=== PATIENT | male | born 1960 | race Caucasian/White ===

== ENCOUNTER 2018-01-15 20:33 | Emergency (ER) | payer BC, OTHER ==
[2018-01-15] MEDS ORDERED: Ketorolac Tromethamine 30 MG/ML VIAL ONE (20:41)
[2018-01-15 21:14] LABS: Band 2 % (5-11); Hemoglobin 16.7 g/dL (14.0-18.0); Lymphocytes 5 % (21-51); MDiff Complete? YES; Mean Corpuscular HGB CONC 34.2 g/dL (32.0-36.0); Mean Corpuscular Hemoglobin 30.1 pg (27.0-31.0); Mean Platelet Volume 9.7 fL (7.4-10.4); Monocytes 10 % (0-10); Neutrophil 76 % (42-75); PLT Morphology Comment Appears Adequate; Platelet Count 180 thou/uL (130-400); RBC Distribution Width 12.2 % (11.5-14.5); Reactive Lymphocytes 7 % (0-10); Red Blood Cell (RBC) Count 5.55 mill/uL (4.70-6.10); White Blood Cell (WBC) Count 10.2 thou/uL (4.8-10.8)
[2018-01-15 21:23] LABS: ALT (SGPT) 33 U/L (8-55); AST (SGOT) 27 U/L (5-34); Albumin 4.5 g/dL (3.5-5.0); Alkaline Phosphatase 75 U/L (40-150); Anion Gap 18 mmol/L (10-20); BUN (Urea Nitrogen) 16 mg/dL (8.4-25.7); Bilirubin, Total 1.7 mg/dL (0.2-1.2); Calc. Creatinine Clearance 0 mL/min (70-130); Calcium 9.6 mg/dL (7.8-10.44); Carbon Dioxide 20 mmol/L (22-29); Chloride 103 mmol/L (98-107); Estimated GFR-MDRD 48; Globulin 3.2 g/dL (2.4-3.5); Glucose 141 mg/dL (70-105); Potassium 4.5 mmol/L (3.5-5.1); Protein, Total 7.7 g/dL (6.0-8.3); Sodium 136 mmol/L (136-145)
--- NOTE | 2018-01-15 21:26 | RAD ---
RIGHT KNEE FOUR VIEWS: 01/15/18 COMPARISON: None. HISTORY: Twisted knee, fall. FINDINGS: No significant knee joint effusion, displaced fracture, or evidence of dislocation. Mild posterior pa tellar osteophyte formation. IMPRESSION: No acute findings. POS: [facility]
[2018-01-15 21:38] LABS: Bilirubin Negative (Negative); Blood, Urine Negative (Negative); Clarity Slightly Cloudy (Clear); Glucose, Urine (Dipstick) Negative (Negative); Leukocyte Negative (Negative); Nitrite Negative (Negative); Protein, Urine (Dipstick) Negative (Neg-Trace); Specific Gravity, Urine 1.025 (1.005-1.030); Urobilinogen 0.2 mg/dL (0.2-1.0); pH, Urine 5.5 (5.0-9.0)
--- NOTE | 2018-01-15 22:40 | CT ---
CT OF THE ABDOMEN AND PELVIS 01/15/18 COMPARISON: None. HISTORY: Right flank pain. TECHNIQUE: Serial axial CT imaging obtained at 5 mm intervals from lung bases through pubic symphysis without co ntrast. Coronal reformatted imaging obtained. FINDINGS: The lack of contrast media limits assessment of the viscera, bowel, vascular structures and for lymph adenopathy. Mild bilateral lower lobe volume loss noted. No free intraperitoneal air. Limited assessment of the l iver and spleen is unremarkable. Incidental note is made of a posterior gastric fundus diverticulum and a duodenal diverticulum. Gallb ladder is nonvisualized. Pancreas and adrenal glands appear unremarkable. There is no evidence for nephrolithiasis or obstructive uropathy on the left. There is hydronephrosis and hydroureter on the right with nephromegaly and perinephric stranding. Thi s is secondary to an obstructing stone at the level of the right ureterovesicular junction measuring 4-5 mm, best seen on coronal image 96 and axial image 97. Limited assessment of the bowel demonstrates scattered diverticula within the sigmoid colon but no ev idence for diverticulitis. The appendix is unremarkable. There is scattered atherosclerotic calcification involving the abdominal aorta and its branches. Ther e is scattered degenerative change within the lower lumbar spine and in the region of the thoracolumb ar junction. IMPRESSION: Obstructive uropathy on the right secondary to a 4-5 mm obstructing stone at the level of the right u reterovesicular junction. Additional incidental findings as detailed above. POS: [facility]
== END 2018-01-15 22:18 | disposition home or self-care (01) ==
LOC: SCSER 20:33
DX: S83.91XA Sprain of unspecified site of right knee, initial encounter (principal); N13.2 Hydronephrosis with renal and ureteral calculous obstruction; I10 Essential (primary) hypertension; Z79.82 Long term (current) use of aspirin; Z79.899 Other long term (current) drug therapy; X50.1XXA Overexertion from prolonged static or awkward postures, initial encounter; Y93.23 Activity, snow (alpine) (downhill) skiing, snowboarding, sledding, tobogganing and snow tubing
CPT/HCPCS: 74176; 80053; 81003; 85025; 96361; 96374; 96375; J1885

== ENCOUNTER 2018-01-27 08:00 | Outpatient (CLI) | payer OTHER ==
--- NOTE | 2018-01-27 11:16 | MRI ---
MRI LEFT WRIST WITHOUT CONTRAST: INDICATIONS: Concern for TFCC injury and tendinitis. TECHNIQUE: Multiplanar, multisequence MR images were obtained of the left wrist without IV contrast. FINDINGS: Motion artifact slightly limits image detail. There is some intrinsic increased T2 signal involving the central aspect of the TFC, near its inserti on to the radius; however, no discrete TFC tear is evident. The visualized aspects of the meniscal h omologue and peripheral TFC attachments appear within normal limits. The scapholunate and lunotrique tral ligaments are intact. The visualized extrinsic ligaments appear intact. There is a small amoun t of fluid surrounding the ECU tendon, at the level of the ulnar styloid, best seen on image 27 of se haley 4. The remaining extensor tendons appear intact. The carpal tunnel and its contents are normal appearing. The median nerve is normal appearing. The ulnar neural vasculature appears within conor l limits. The FCR and FCU tendons appear normal. No acute osseous abnormality is evident. There is mild first CMC osteoarthrosis. The intrinsic hand musculature has a normal signal intensity. IMPRESSION: 1. Mild intrinsic degenerative signal involving the central aspect of the triangular fibrocartilage without evidence of a discrete tear. 2. Mild extensor carpi ulnaris tenosynovitis. 3. Mild first carpometacarpal osteoarthrosis. POS: [facility]
== END 2018-01-27 08:01 | disposition home or self-care (01) ==
LOC: SCSMRI 08:00
PROVIDERS: ATTEND Orthopaedic Surgery Hand Surgery
DX: S63.522A Sprain of radiocarpal joint of left wrist, initial encounter (principal)

== ENCOUNTER 2018-04-18 10:46 | Outpatient (CLI) | payer OTHER ==
[2018-04-18 12:12] LABS: #Eosinphils 0.1 thou/uL (0.0-0.7); #Lymphocytes 1.5 thou/uL (1.20-3.40); #Monocytes 0.3 thou/uL (0.11-0.59); %Basophils 0.4 % (0.0-1.0); %Eosinophils 2.9 % (0.0-10.0); %Lymphocytes 29.7 % (21.0-51.0); %Monocytes 6.2 % (0.0-10.0); %Neutrophils 60.8 % (42.0-75.0); Hemoglobin 14.9 g/dL (14.0-18.0); Mean Corpuscular HGB CONC 34.4 g/dL (32.0-36.0); Mean Corpuscular Hemoglobin 31.7 pg (27.0-31.0); Mean Corpuscular Volume 92.1 fl (80.0-94.0); Mean Platelet Volume 7.4 fL (7.4-10.4); Platelet Count 155 thou/uL (130-400); RBC Distribution Width 11.7 % (11.5-14.5); Red Blood Cell (RBC) Count 4.71 mill/uL (4.70-6.10); White Blood Cell (WBC) Count 4.9 thou/uL (4.8-10.8)
== END 2018-04-18 10:47 | disposition home or self-care (01) ==
LOC: LABBT 10:46
PROVIDERS: ATTEND Orthopaedic Surgery Hand Surgery
DX: Z01.812 Encounter for preprocedural laboratory examination (principal); M65.332 Trigger finger, left middle finger; M77.8 Other enthesopathies, not elsewhere classified; S63.599A Other specified sprain of unspecified wrist, initial encounter
CPT/HCPCS: 85025; 85652; 93005; 93010

== ENCOUNTER 2018-04-19 07:38 | Day surgery (SDC) | payer OTHER ==
[2018-04-18 11:15] VITALS: BMI 35.6
[2018-04-19] MEDS ORDERED: CEFAZOLIN/Water 2 GM/20 ML SYRINGE ONE (08:55)
[2018-04-19] MEDS ORDERED: Bacitracin Zinc Ointment 30 gm TUBE ONE (09:15)
[2018-04-19] MEDS ORDERED: EPINEPHrine 1 MG/ML AMP ONE (09:15)
[2018-04-19] MEDS ORDERED: Sodium Chloride 0.9% 10 ML ONE (09:15)
[2018-04-19] MEDS ORDERED: Bupivacaine PF 0.5% 30 ML VIAL ONE (09:15)
[2018-04-19] MEDS ORDERED: Midazolam HCl 2 mg/2 ml Vial ONE (09:18)
[2018-04-19] MEDS ORDERED: Fentanyl 100 MCG/2 ML VIAL ONE (09:18)
[2018-04-19] MEDS ORDERED: Betamet Acet/Betamet Na Ph 30 MG/5 ML VIAL ONE (10:18)
[2018-04-19] MEDS ORDERED: Ketorolac Tromethamine 30 MG/ML VIAL ONE ×2 (12:25→13:17)
[2018-04-19] MEDS ORDERED: PHENYLEPHRINE-NS 100 MCG/ML 10 ML SYRINGE ONE (13:17)
[2018-04-19] MEDS ORDERED: PROPOFOL 200 MG/20 ML VIAL ONE (13:17)
[2018-04-19] MEDS ORDERED: Dexamethasone 20 MG/5 ML VIAL ONE (13:17)
[2018-04-19] MEDS ORDERED: Lidocaine 1% PF 5 ML VIAL ONE (13:17)
[2018-04-19] MEDS ORDERED: Ondansetron HCl/PF 4 MG/2 ML Vial ONE (13:17)
--- NOTE | 2018-04-19 13:34 | RAD ---
THREE VIEWS LEFT WRIST: Date: 04-19-18 History: Follow up secondary to surgery. Evaluation of needle count. FINDINGS: There is subcutaneous soft tissue swelling and subtle lucencies overlying the dorsal aspect of the ca rpal metacarpal joints likely related to subcutaneous edema and emphysema from recent post-surgical c hanges. There is no fracture seen. No radiopaque or metallic foreign body is identified. IMPRESSION: 1. Subcutaneous soft tissue swelling about the wrist, greater dorsally, with suggestion of minimal iris cency which may be related to subcutaneous emphysema secondary recent surgical change. 2. No radiopaque or metallic foreign body is seen overlying the left wrist. 3. No acute osseous abnormality. POS: [facility]
--- NOTE | 2018-04-20 15:08 | OP ---
DATE OF PROCEDURE: 04/19/2018 PREOPERATIVE DIAGNOSES: 1. Synovitis, extensor carpi ulnaris tendon, left near the ulnar styloid. 2. Possible triangular fibrocartilage tear. 3. Tenosynovitis from middle finger, left A1 jeannie. POSTOPERATIVE DIAGNOSES: 1. Severe A1 jeannie tenosynovitis with tightening of the jeannie. 2. No evidence of wrist abnormality on diagnostic arthroscopy including no evidence of triangular fi brocartilage. 3. Extensor carpi ulnaris tenosynovitis just distal to the ulnar styloid over 2.5 cm area. PROCEDURES PERFORMED: 1. Left middle finger A1 jeannie release. 2. Left wrist diagnostic arthroscopy. 3. Left extensor carpi ulnaris tenosynovectomy. 4. Left flexor digitorum profundus tenosynovectomy middle finger A1 jeannie region. SPECIMEN SENT: Tenosynovial in the middle finger A1 jeannie area and the extensor carpi ulnaris tendo n. ESTIMATED BLOOD LOSS: Less than or equal to 15 mL. FINDINGS: No triangular fibrocartilage complex tear, whatsoever. No lunotriquetral abnormality, wha tsoever. INDICATIONS: Persistent pain with the above diagnoses. Failed conservative treatment. DESCRIPTION OF PROCEDURE: After successful general LMA technique, limb was prepped and draped. The patient had an arm kumar applied with inline traction. Arthrex sports type arm kumar for arthrosco py of the wrist. Then, outlined a standard portal at 3-4, 6U and 6R and established portals at 6U an d 3-4. We visualized the joint from both the 3-4 and 6U and found no true synovial abnormalities, no chondral abnormality, no ligamentous tear, laxity and no incongruity, but we did see that there was no triangular fibrocartilage tear. We removed the arthroscope. We then reinflated the tourniquet to 250 mmHg pressure and made a zigzag incision along extensor carpi ulnaris beginning at the incisura for the tendon at the ulnar head, opened the sheath, saw the thickness in over 2.5 cm. I did a radic al flexor tenosynovectomy to extensor carpi ulnaris tendon. We then reclosed retinaculum using a 4-0 Prolene. We released the tourniquet and closed this incision. Hemostasis obtained. Superficial ulnar nerve w as intact. This wound closed with running 4-0 Monocryl and 4-0 nylon outside for epidermis jorge sure only. We exsanguinated the limb, had a 12-minute tourniquet time now and approached the middle finger A1 pu lley with a longitudinal incision carrying through skin and subcutaneous tissue, visualizing neurovas cular bundle and tracked . We then visualized the A1 jeannie and performed the A1 jeannie release under direct visualization. Then, we lifted the tendons up and found the flexor tendon profundus goldsmith d marked tenosynovium, so we did a radical flexor tenosynovectomy here. The patient then had the helen rniquet deflated. Incision was closed after given Celestone here 2 mL and using 4-0 nylon interrupte d mattress pattern. Marcaine was given at all sites, a total of 20 mL, 10 divided equally and the pa tient left the operating room without evidence of anesthetic or operative complication.
== END 2018-04-19 14:14 | disposition home or self-care (01) ==
LOC: SDC 07:38
PROVIDERS: ATTEND Orthopaedic Surgery Hand Surgery
PROC: 0RJP4ZZ Inspection of Left Wrist Joint, Percutaneous Endoscopic Approach (ICD-10-PCS; principal; 2018-04-19)
PROC: 0LB60ZZ Excision of Left Lower Arm and Wrist Tendon, Open Approach (ICD-10-PCS; principal; 2018-04-19)
PROC: 0LB80ZZ Excision of Left Hand Tendon, Open Approach (ICD-10-PCS; principal; 2018-04-19)
PROC: 0LN80ZZ Release Left Hand Tendon, Open Approach (ICD-10-PCS; principal; 2018-04-19)
DX: M65.332 Trigger finger, left middle finger (principal); M65.842 Other synovitis and tenosynovitis, left hand; M77.8 Other enthesopathies, not elsewhere classified; I10 Essential (primary) hypertension; G47.33 Obstructive sleep apnea (adult) (pediatric); G47.00 Insomnia, unspecified; M19.90 Unspecified osteoarthritis, unspecified site; E78.5 Hyperlipidemia, unspecified; Z79.82 Long term (current) use of aspirin; Z79.899 Other long term (current) drug therapy; Z88.8 Allergy status to other drugs, medicaments and biological substances; Z98.890 Other specified postprocedural states
CPT/HCPCS: 88305; 96374; A4216; J0171; J0702; J1100; J1885; J2001; J2250; J2405; J2704; J3010; J3490; S0020

== ENCOUNTER 2018-08-20 11:47 | Emergency (ER) | payer OTHER ==
[2018-08-20] MEDS ORDERED: Ketorolac Tromethamine 60 MG/2 ML VIAL ONE (12:29)
--- NOTE | 2018-08-20 13:18 | RAD ---
RIGHT KNEE 4 VIEW SERIES: COMPARISON: 01/15/2018. INDICATION: Injury, fall, pain. FINDINGS: Mild osteoarthritis is present without fracture or dislocation. IMPRESSION: No acute osseous abnormality of the right knee. POS: [facility]
== END 2018-08-20 13:00 | disposition home or self-care (01) ==
LOC: ERS 11:47
DX: S80.01XA Contusion of right knee, initial encounter (principal); I10 Essential (primary) hypertension; M10.9 Gout, unspecified; Z79.82 Long term (current) use of aspirin; Z79.899 Other long term (current) drug therapy; W01.0XXA Fall on same level from slipping, tripping and stumbling without subsequent striking against object, initial encounter; Y92.69 Other specified industrial and construction area as the place of occurrence of the external cause
CPT/HCPCS: 96372; J1885

== ENCOUNTER 2018-10-05 08:02 | Outpatient (CLI) | payer OTHER ==
[2018-10-05] MEDS ORDERED: Iopamidol 370 76% 100 ML VIAL ONE (10:41)
[2018-10-05] MEDS ORDERED: Gadobenate Dimeglumine 529 MG/1 ML (20ML VIAL) ONE (10:45)
--- NOTE | 2018-10-05 11:47 | MRI ---
MRI LEFT WRIST WITH AND WITHOUT CONTRAST: HISTORY: History of left wrist pain and gout. Concern for synovitis. COMPARISON: Left wrist radiograph from [facility] dated 04/19/2018. TECHNIQUE: MultiHance 20 mL was utilized for the examination. A surface marker was placed within the region of interest. FINDINGS: Motion artifact degrades image quality. The extent of the soft tissue swelling has improved from the prior exam. No large joint effusion is evident. No periarticular erosive change is grossly evident. There is mild first CMC osteoarthrosis . No ra tenosynovitis is evident. The carpal tunnel and its contents appear within normal limits . Scapholunate and lunatotriquetral ligaments appear intact. The visualized extrinsic ligaments, wi thin the limitations of the exam, appear intact. No definite acute osseous abnormality is evident. No abnormal enhancement is noted. IMPRESSION: Improved soft tissue swelling of the left wrist when compared to a prior radiograph dated 04/19/2018. No abnormal enhancement demonstrated. No large amount of synovitis is noted. No periarticular ero sive change is evident. There is first carpometacarpal osteoarthrosis.. POS: [facility]
--- NOTE | 2018-10-05 14:11 | CT ---
CT ABDOMEN WITH CONTRAST CT PELVIS WITH CONTRAST: DATE: 10/05/18 HISTORY: 58-year-old male with palpable mass inferior to right rib cage, and pain in right groin. TECHNIQUE: IV injection of iodinated contrast media: Isovue. Oral contrast media: Readi-Cat. FINDINGS: Liver: No focal solid mass. Spleen: No splenomegaly. Pancreas: No mass or surrounding fat stranding. Adrenals: Right adrenal is normal. There is a low attenuation 3 x 3.5 cm left adrenal mass. Noncontra st density on CT of 01/15/18 was 15 HU. On the current post contrast CT, the attenuation is approxima tely 20 HU. Kidneys: No hydronephrosis or enhancement abnormalities. Ureters: No dilation. Bladder: No pathology identified. Abdominal aorta: No aneurysm. Small bowel: No dilation. Colon: No adjacent fat stranding. Appendix: No dilation or adjacent fat stranding. Free air: None. Free fluid: None. There is no evidence of bowel-containing inguinal hernia, inguinal lymphadenopathy or any other mass. There is no mass identified inferior to the right rib cage. IMPRESSION: 1. Left adrenal indeterminate mass. Recommend further evaluation with dedicated MRI of the adrenal g lands with and without contrast. 2. Otherwise negative CT. john [] POS: [facility]
== END 2018-10-05 08:03 | disposition home or self-care (01) ==
LOC: MRI 08:02
PROVIDERS: ATTEND Family Medicine
DX: S63.52 Sprain of radiocarpal joint (principal); M10.9 Gout, unspecified; M65.9 Synovitis and tenosynovitis, unspecified; M79.89 Other specified soft tissue disorders; M18.12 Unilateral primary osteoarthritis of first carpometacarpal joint, left hand; R10.84 Generalized abdominal pain
CPT/HCPCS: 74177; A9579

== ENCOUNTER 2019-06-20 07:31 | Outpatient (CLI) | payer OTHER ==
--- NOTE | 2019-06-20 11:02 | CT ---
CT AD AND PELVIS WITH ORAL AND IV CONTRAST: HISTORY: Retroperitoneal mass. COMPARISON: CT abdomen and pelvis of 10/05/2018. CORRELATION: MRI abdomen of 10/20/2018. There is elevation of the right hemidiaphragm with adjacent atelectatic change. There is mildly decreased attenuation of the liver compared to the spleen consistent with fatty infil tration. The spleen, adrenal glands, and kidneys are normal. The nonenhancing 3.5 cm cystic mass ar ising from mass in the left peritoneum separate from the left adrenal gland and pancreas is stable. The pancreas is normal. No free air, free fluid, or lymphadenopathy is seen in the abdomen or pelvis. The small bowel loops are not abnormally dilated. A normal-appearing appendix is present. There is mild colonic diverticu losis. Vascular calcifications are present without evidence of aneurysmal dilatation of the abdomina l aorta. There are degenerative changes in the spine. IMPRESSION: 1. Stable left retroperitoneal cystic mass. 2. Mild fatty infiltration of the liver. POS: [facility]
== END 2019-06-20 07:32 | disposition home or self-care (01) ==
LOC: SCSCT 07:31
PROVIDERS: ATTEND Surgery
DX: R19.00 Intra-abdominal and pelvic swelling, mass and lump, unspecified site (principal); K76.0 Fatty (change of) liver, not elsewhere classified
CPT/HCPCS: 74177

== ENCOUNTER 2019-12-15 12:23 | Outpatient (CLI) | payer OTHER ==
[~2019-12-15 12:23] MED LIST: Iopamidol-370 76% 500 ML 1 ML ONE
--- NOTE | 2019-12-15 14:33 | CT ---
CT ANGIOGRAM THORAX WITH AND WITHOUT IV CONTRAST AND 3-D RECONSTRUCTIONS CLINICAL INDICATION: Thoracic aortic aneurysm, chest pain. COMPARISON: 03/02/2016 FINDINGS: Pulmonary arteries: No filling defects are seen in the pulmonary arteries to suggest a pulmonary embo gabi. Aorta: The ascending thoracic aorta is ectatic measuring approximately 4.3 cm at the level of the phill n pulmonary artery. The descending thoracic aorta is normal in caliber measuring 3 cm in diameter. There is no evidence of an aortic dissection. There is a normal arrangement of the great vessels at t he aortic arch which are patent. Minimal vascular calcifications are seen at the aortic arch. Lungs: There is elevation right hemidiaphragm with volume loss at the right lung base. Minimal atelec tasis is present at the left lung base. No pleural effusion or consolidation is seen. Mediastinum: There is no evidence of lymphadenopathy. Thyroid gland: Previously seen subcentimeter hypodense nodules in each lobe of the thyroid gland are less perceptible on the current study. Calcification is seen in the right lobe of thyroid gland. Osseous structures: Mild degenerative changes are seen in the spine. Partial visualization of postope rative changes of the lower cervical spine with findings likely related to prior rotator cuff repair of the right shoulder. Chest wall: No abnormality visualized. Upper abdomen: Lobulated cystic appearing lesion left upper quadrant measuring 3.6 cm is again seen a nd overall similar in size to recent CT scan abdomen on 06/20/2019. This cystic lesion was also present on prior CTA chest on 03/02/2016. There is fluid attenuation of this lobulated cystic structure with abuts the stomach as well as the body of the left adrenal gland. This could potentially represent a gastric diverticulum. An approximately 2 mm nonobstructing calculus is seen in the superior pole right kidney. IMPRESSION: 1. Ectasia of the ascending thoracic aorta without aneurysmal dilatation. There is no evidence of a t horacic aortic dissection. 2. No acute findings are seen in the chest. 3. Elevation right hemidiaphragm with volume loss right lung base. 4. Nonobstructing superior pole right renal calculus. 5. Stable lobulated fluid attenuation cystic structure left upper quadrant which could potentially re present a gastric diverticulum. This is stable dating back to study in 2015.
== END 2019-12-15 12:24 | disposition home or self-care (01) ==
LOC: BICCT 12:23
PROVIDERS: ATTEND Internal Medicine Cardiovascular Disease
DX: R00.2 Palpitations (principal); I10 Essential (primary) hypertension; I71.2 Thoracic aortic aneurysm, without rupture; R07.9 Chest pain, unspecified; I77.810 Thoracic aortic ectasia; N20.0 Calculus of kidney; K31.4 Gastric diverticulum
CPT/HCPCS: 71275; 82565; Q9967

== ENCOUNTER 2020-01-22 08:05 | Outpatient (CLI) | payer OTHER ==
--- NOTE | 2020-01-22 09:57 | ULT ---
ULTRASOUND CAROTID DOPPLER STANDARD: HISTORY: Aphasia. FINDINGS: Real-time, worthy scale, color Doppler, and spectral analysis of the extracranial carotid and vertebral arteries was performed. No elevated peak systolic velocities within the internal carotid arteries. Antegrade flow of both ve rtebral arteries. Minimal atherosclerotic plaque both carotid bulbs. IMPRESSION: No hemodynamically significant stenosis. POS: [facility]
== END 2020-01-22 08:06 | disposition home or self-care (01) ==
LOC: SCSULT 08:05
PROVIDERS: ATTEND Family Medicine
DX: R47.01 Aphasia (principal)
CPT/HCPCS: 93880

== ENCOUNTER 2020-05-13 08:03 | Outpatient (CLI) | payer OTHER ==
--- NOTE | 2020-05-13 08:42 | ULT ---
ULTRASOUND RETROPERITONEUM COMPLETE: (RENAL) DATE: 05/13/2020 HISTORY: 59-year-old male with ICD-10: "N 20.0 recurrent kidney stones" FINDINGS: Please note that noncontrast CT is much more sensitive for renal calculi than ultrasound, especially for small calculi. The right kidney measures 11 x 6 x 7 cm. The left kidney measures 12 x 5.5 x 6.5 cm. Both kidneys have normal parenchymal echogenicity. There is no hydronephrosis. No moderate sized or large renal cystic or solid renal lesion is identified. Cursory images of the urinary bladder demonstrate no gross abnormality. IMPRESSION: Normal
--- NOTE | 2020-05-13 08:52 | RAD ---
Exam: Abdomen one view HISTORY: Recurrent renal calculi. COMPARISON: none FINDINGS: Nonspecific bowel gas pattern. No suspicious densities in the abdomen. Densities in the rig ht hemipelvis are favored to be phleboliths. Mild leftward curvature the upper lumbar spine. Visualized bony pelvis is intact IMPRESSION: Nonspecific bowel gas pattern.
== END 2020-05-13 08:04 | disposition home or self-care (01) ==
LOC: SCSULT 08:03
PROVIDERS: ATTEND Urology
DX: N20.0 Calculus of kidney (principal)
CPT/HCPCS: 74018; 76770

== ENCOUNTER 2020-08-15 15:30 | Outpatient (CLI) | payer OTHER ==
--- NOTE | 2020-08-15 16:51 | CT ---
CT ABDOMEN AND PELVIS WITHOUT IV CONTRAST: Date: 08/15/2020 INDICATION: Right back pain. History of renal stones. Comparison made to CT abdomen and pelvis of 01/15/2018. FINDINGS: Lung bases clear. Elevated right hemidiaphragm again noted, stable. The liver, spleen, and pancreas are unremarkable. A small diverticulum from the posterior fundus of the stomach is again noted and was described previo usly. This appears stable. Adrenal glands unremarkable. Kidneys show no evidence of hydronephrosis. Tiny nonobstructing calculi seen in the upper collecting structures of the right kidney. There are two or three tiny calculi measuring in the 1-2 mm range. No definite calculi seen in the left kidney. The ureters are normal caliber. Urinary bladder is unremar kable. Small bowel loops are normal. The appendix appears normal. Colon unremarkable with diverticulosis see n in the sigmoid. Aorta normal caliber. No adenopathy, mass, or free fluid seen. Vertebral bodies maintain height. Degenerative changes at L5-S1 noted. IMPRESSION: 1. No acute intra-abdominal process. 2. Two or three tiny nonobstructing calculi in the upper collecting structures of the right kidney. POS: [facility]
== END 2020-08-15 15:31 | disposition home or self-care (01) ==
LOC: SCSCT 15:30
PROVIDERS: ATTEND Family Medicine
DX: R10.9 Unspecified abdominal pain (principal); N20.0 Calculus of kidney
CPT/HCPCS: 74176

== ENCOUNTER 2021-03-19 19:42 | Inpatient (IN) | payer OTHER ==
[2021-03-19 21:30] VITALS: BMI 35.3
[2021-03-19] MEDS ORDERED: Ondansetron PF 4 MG/2 ML Vial IVP PRN (21:56)
[2021-03-19] MEDS ORDERED: Acetaminophen 325 MG TAB PO PRN (21:56)
[2021-03-19] MEDS ORDERED: Heparin 25,000 units/D5W 500 ML IVPB SCH (22:15)
[2021-03-19] MEDS ORDERED: Heparin 10,000 UNITS/ 10 ML VIAL SLOW IVP SCH (22:15)
[2021-03-19 22:22] LABS: Hemoglobin 14.1 g/dL (14.0-18.0); Platelet Count 131 thou/uL (130-400)
[2021-03-19] MEDS ORDERED: Carvedilol 25 MG TAB PO SCH (23:00)
[2021-03-19 23:09] LABS: PTT 242.3 sec (22.9-36.1)
[2021-03-20 01:08] LABS: SARS-CoV-2 PCR by NAA Not Detected (NotDetected)
[2021-03-20 01:32] LABS: #Eosinphils 0.2 thou/uL (0.0-0.7); #Lymphocytes 2.3 thou/uL (1.20-3.40); #Monocytes 0.5 thou/uL (0.11-0.59); #Neutrophils 3.8 thou/uL (1.40-6.50); %Basophils 0.5 % (0.0-1.0); %Eosinophils 2.4 % (0.0-10.0); %Monocytes 7.4 % (0.0-10.0); %Neutrophils 55.7 % (42.0-75.0); Hemoglobin 13.7 g/dL (14.0-18.0); Mean Corpuscular HGB CONC 34.1 g/dL (32.0-36.0); Mean Corpuscular Hemoglobin 33.2 pg (27.0-31.0); Mean Corpuscular Volume 97.1 fL (78.0-98.0); Platelet Count 137 thou/uL (130-400); RBC Distribution Width 13.1 % (11.5-14.5); Red Blood Cell (RBC) Count 4.15 mill/uL (4.70-6.10); White Blood Cell (WBC) Count 6.8 thou/uL (4.8-10.8)
[2021-03-20 01:49] LABS: PTT 181.7 sec (22.9-36.1)
[2021-03-20 01:56] LABS: Anion Gap 13 mmol/L (10-20); BUN (Urea Nitrogen) 14 mg/dL (8.4-25.7); Calc. Creatinine Clearance 123 mL/min (70-130); Carbon Dioxide 26 mmol/L (23-31); Chloride 105 mmol/L (98-107); Glucose 144 mg/dL (80-115); Sodium 140 mmol/L (136-145)
[2021-03-20] MEDS: Famotidine 20 MG TAB PO SCH ×2 (09:02→20:30)
[2021-03-20] MEDS: Carvedilol 25 MG TAB PO SCH ×2 (09:02→21:47)
[2021-03-20] MEDS ORDERED: Acetaminophen 500 MG TAB PO PRN (16:40)
[2021-03-20] MEDS ORDERED: Enoxaparin Sodium 120 MG/0.8 ML SYRINGE SC SCH ×2 (17:15→21:00)
[2021-03-20] MEDS: Colchicine 0.6 MG TAB PO SCH (20:28)
[2021-03-20] MEDS: traZODone HCl 50 MG TAB PO SCH (20:31)
[2021-03-21 04:53] LABS: #Eosinphils 0.2 thou/uL (0.0-0.7); #Lymphocytes 1.8 thou/uL (1.20-3.40); #Monocytes 0.6 thou/uL (0.11-0.59); #Neutrophils 3.9 thou/uL (1.40-6.50); %Basophils 0.3 % (0.0-1.0); %Eosinophils 2.9 % (0.0-10.0); %Lymphocytes 28.2 % (21.0-51.0); %Monocytes 8.7 % (0.0-10.0); %Neutrophils 59.9 % (42.0-75.0); Hemoglobin 14.6 g/dL (14.0-18.0); Mean Corpuscular HGB CONC 34.3 g/dL (32.0-36.0); Mean Corpuscular Hemoglobin 33.1 pg (27.0-31.0); Mean Corpuscular Volume 96.5 fL (78.0-98.0); Mean Platelet Volume 7.7 fL (7.4-10.4); Platelet Count 141 thou/uL (130-400); RBC Distribution Width 13.3 % (11.5-14.5); Red Blood Cell (RBC) Count 4.41 mill/uL (4.70-6.10); White Blood Cell (WBC) Count 6.5 thou/uL (4.8-10.8)
[2021-03-21 05:20] LABS: Anion Gap 13 mmol/L (10-20); BUN (Urea Nitrogen) 15 mg/dL (8.4-25.7); Calc. Creatinine Clearance 117 mL/min (70-130); Calcium 9.4 mg/dL (7.8-10.44); Carbon Dioxide 28 mmol/L (23-31); Chloride 102 mmol/L (98-107); Glucose 132 mg/dL (80-115); Potassium 4.1 mmol/L (3.5-5.1); Sodium 139 mmol/L (136-145)
[2021-03-21] MEDS: Enoxaparin Sodium 120 MG/0.8 ML SYRINGE SC SCH ×2 (08:56→22:30)
[2021-03-21] MEDS: Folic Acid 1 MG TAB PO SCH (08:57)
[2021-03-21] MEDS: Aspirin 81 mg Enteric Coated Tablet PO SCH (08:57)
[2021-03-21] MEDS: Allopurinol 300 MG TAB PO SCH (08:57)
[2021-03-21] MEDS: Colchicine 0.6 MG TAB PO SCH ×2 (08:57→22:30)
[2021-03-21] MEDS: Carvedilol 25 MG TAB PO SCH ×2 (08:58→22:30)
[2021-03-21] MEDS: Famotidine 20 MG TAB PO SCH ×2 (08:58→22:30)
[2021-03-21] MEDS: traZODone HCl 50 MG TAB PO SCH (22:07)
[2021-03-21] MEDS: HYDROcodone/Acetaminophen 5/325 mg Tablet PO PRN (22:33)
[2021-03-22 05:03] LABS: #Basophils 0.1 thou/uL (0.0-0.2); #Eosinphils 0.2 thou/uL (0.0-0.7); #Monocytes 0.5 thou/uL (0.11-0.59); #Neutrophils 3.6 thou/uL (1.40-6.50); %Basophils 1.3 % (0.0-1.0); %Eosinophils 2.5 % (0.0-10.0); %Lymphocytes 31.1 % (21.0-51.0); %Monocytes 8.1 % (0.0-10.0); Hemoglobin 14.9 g/dL (14.0-18.0); Mean Corpuscular HGB CONC 34.5 g/dL (32.0-36.0); Mean Corpuscular Hemoglobin 33.2 pg (27.0-31.0); Mean Corpuscular Volume 96.2 fL (78.0-98.0); Mean Platelet Volume 7.7 fL (7.4-10.4); Platelet Count 150 thou/uL (130-400); RBC Distribution Width 13.4 % (11.5-14.5); White Blood Cell (WBC) Count 6.3 thou/uL (4.8-10.8)
[2021-03-22 05:10] LABS: Anion Gap 16 mmol/L (10-20); BUN (Urea Nitrogen) 13 mg/dL (8.4-25.7); Calc. Creatinine Clearance 136 mL/min (70-130); Carbon Dioxide 24 mmol/L (23-31); Chloride 102 mmol/L (98-107); Glucose 116 mg/dL (80-115); Potassium 3.7 mmol/L (3.5-5.1); Sodium 138 mmol/L (136-145)
[2021-03-22] MEDS ORDERED: Apixaban 5 MG TAB PO SCH (09:00)
[2021-03-22] MEDS: Colchicine 0.6 MG TAB PO SCH (09:11)
[2021-03-22] MEDS: Carvedilol 25 MG TAB PO SCH (09:11)
[2021-03-22] MEDS: Folic Acid 1 MG TAB PO SCH (09:11)
[2021-03-22] MEDS: Allopurinol 300 MG TAB PO SCH (09:11)
[2021-03-22] MEDS: Aspirin 81 mg Enteric Coated Tablet PO SCH (09:11)
[2021-03-22] MEDS: Famotidine 20 MG TAB PO SCH (09:11)
[2021-03-22] MEDS: HYDROcodone/Acetaminophen 5/325 mg Tablet PO PRN (09:46)
[2021-03-22 11:56] VITALS: BP 128/80; TEMP 98
== END 2021-03-22 14:59 | disposition home or self-care (01) | DRG 175 ==
LOC: IMCU/EMU 19:42 → 2NO 03-20 23:19
PROVIDERS: ADMIT Internal Medicine; ATTEND Internal Medicine
DX: I26.99 Other pulmonary embolism without acute cor pulmonale (principal); J96.01 Acute respiratory failure with hypoxia; I82.432 Acute embolism and thrombosis of left popliteal vein; M10.9 Gout, unspecified; I49.3 Ventricular premature depolarization; I08.3 Combined rheumatic disorders of mitral, aortic and tricuspid valves; N18.2 Chronic kidney disease, stage 2 (mild); I12.9 Hypertensive chronic kidney disease with stage 1 through stage 4 chronic kidney disease, or unspecified chronic kidney disease; E78.5 Hyperlipidemia, unspecified; M19.90 Unspecified osteoarthritis, unspecified site; R79.89 Other specified abnormal findings of blood chemistry; E66.9 Obesity, unspecified; G47.30 Sleep apnea, unspecified; Z88.8 Allergy status to other drugs, medicaments and biological substances; Z79.82 Long term (current) use of aspirin; Z79.1 Long term (current) use of non-steroidal anti-inflammatories (NSAID); Z90.49 Acquired absence of other specified parts of digestive tract; Z79.899 Other long term (current) drug therapy; Z95.828 Presence of other vascular implants and grafts; Z98.890 Other specified postprocedural states; Z68.35 Body mass index [BMI] 35.0-35.9, adult
CPT/HCPCS: 36415; 71045; 80048; 80053; 83880; 85025; 85379; 85730; 87635; 93306; 93970; J1644; J1650; U0003; U0005

== ENCOUNTER 2022-03-09 19:21 | Inpatient (IN) | payer BC ==
[2022-03-09 20:57] LABS: CKMB 1.6 ng/mL (0-6.6)
[2022-03-09 21:06] LABS: Bilirubin Negative (Negative); Blood, Urine Negative (Negative); Clarity Clear (Clear); Glucose, Urine (Dipstick) Normal (Negative); Ketone, Urine Negative (Negative); Leukocyte Negative Leu/uL (Negative); Nitrite Negative (Negative); Protein, Urine (Dipstick) 20 mg/dL (Neg-Trace); Specific Gravity, Urine 1.023 (1.002-1.036); Urobilinogen Normal mg/dL (Less than 2); pH, Urine 5.5 (5.0-9.0)
[2022-03-09] MEDS ORDERED: Enoxaparin Sodium 100 MG/ML SYRINGE ONE ×3 (21:23→21:37)
[2022-03-09] MEDS ORDERED: Enoxaparin Sodium 40 MG/0.4 ML SYRINGE ONE (21:23)
[2022-03-09] MEDS ORDERED: HYDROcodone/Acetaminophen 5/325 mg Tablet PO PRN (21:55)
[2022-03-09] MEDS ORDERED: Bisacodyl 5 MG TAB PO PRN (21:55)
[2022-03-09] MEDS ORDERED: Zolpidem Tartrate 5 MG TAB PO PRN (21:55)
[2022-03-09] MEDS ORDERED: Ondansetron PF 4 MG/2 ML Vial IVP PRN (21:55)
[2022-03-09] MEDS ORDERED: Morphine 2 MG/ML VIAL SLOW IVP PRN (21:58)
[2022-03-09] MEDS ORDERED: Labetalol HCl 100 MG/20 ML VIAL SLOW IVP PRN (21:58)
[2022-03-09] MEDS ORDERED: Lorazepam 1 MG TAB PO SCH (22:00)
[2022-03-09 22:27] VITALS: BMI 35.3
[2022-03-09 22:29] LABS: Bacteria/HPF None Seen HPF (None Seen); RBC/HPF 0-3 HPF (0-3); Squamous Epithelial None Seen HPF (0-3); WBC/HPF 0-3 HPF (0-3)
[2022-03-09] MEDS ORDERED: Carvedilol 25 MG TAB PO SCH (22:30)
[2022-03-09 22:33] LABS: #Eosinphils 0.1 thou/uL (0.0-0.7); #Lymphocytes 1.8 thou/uL (1.20-3.40); #Monocytes 0.6 thou/uL (0.11-0.59); #Neutrophils 3.5 thou/uL (1.40-6.50); %Basophils 0.2 % (0.0-1.0); %Lymphocytes 29.4 % (21.0-51.0); %Monocytes 9.3 % (0.0-10.0); %Neutrophils 59.1 % (42.0-75.0); Hemoglobin 14.4 g/dL (14.0-18.0); Mean Corpuscular HGB CONC 34.4 g/dL (32.0-36.0); Mean Corpuscular Hemoglobin 33.2 pg (27.0-31.0); Mean Corpuscular Volume 96.6 fL (78.0-98.0); Mean Platelet Volume 7.8 fL (7.4-10.4); Platelet Count 142 thou/uL (130-400); RBC Distribution Width 14.3 % (11.5-14.5); Red Blood Cell (RBC) Count 4.34 mill/uL (4.70-6.10); White Blood Cell (WBC) Count 5.9 thou/uL (4.8-10.8)
[2022-03-09 22:53] LABS: ALT (SGPT) 19 U/L (8-55); AST (SGOT) 17 U/L (5-34); Albumin 4.4 g/dL (3.4-4.8); Alkaline Phosphatase 91 U/L (40-110); Anion Gap 13 mmol/L (10-20); BUN (Urea Nitrogen) 14 mg/dL (8.4-25.7); Bilirubin, Total 2.7 mg/dL (0.2-1.2); Calc. Creatinine Clearance 113 mL/min (70-130); Calcium 9.1 mg/dL (7.8-10.44); Carbon Dioxide 26 mmol/L (23-31); Chloride 104 mmol/L (98-107); Globulin 2.6 g/dL (2.4-3.5); Glucose 107 mg/dL (80-115); Potassium 4.1 mmol/L (3.5-5.1); Sodium 139 mmol/L (136-145)
[2022-03-09 23:04] LABS: Troponin I 0.036 ng/mL (< 0.028)
[2022-03-10 02:46] LABS: Troponin I 0.038 ng/mL (< 0.028)
[2022-03-10 02:47] LABS: ALT (SGPT) 18 U/L (8-55); AST (SGOT) 19 U/L (5-34); Alkaline Phosphatase 83 U/L (40-110); Anion Gap 17 mmol/L (10-20); BUN (Urea Nitrogen) 14 mg/dL (8.4-25.7); Bilirubin, Total 2.7 mg/dL (0.2-1.2); Calc. Creatinine Clearance 118 mL/min (70-130); Calcium 8.9 mg/dL (7.8-10.44); Carbon Dioxide 21 mmol/L (23-31); Chloride 104 mmol/L (98-107); Globulin 2.7 g/dL (2.4-3.5); Glucose 157 mg/dL (80-115); Potassium 3.5 mmol/L (3.5-5.1); Protein, Total 6.7 g/dL (5.8-8.1); Sodium 138 mmol/L (136-145)
[2022-03-10] MEDS: Apixaban 5 MG TAB PO SCH ×2 (08:36→20:49)
[2022-03-10] MEDS: Folic Acid 1 MG TAB PO SCH (08:36)
[2022-03-10] MEDS: Famotidine 20 MG TAB PO SCH ×2 (08:36→20:49)
[2022-03-10] MEDS: Aspirin 81 mg Enteric Coated Tablet PO SCH (08:36)
[2022-03-10] MEDS: Carvedilol 25 MG TAB PO SCH ×2 (08:36→20:49)
[2022-03-10] MEDS: Fish Oil 1,000 MG CAP PO SCH (08:36)
[2022-03-10] MEDS: Allopurinol 300 MG TAB PO SCH (08:37)
[2022-03-10] MEDS ORDERED: Losartan 25 MG TAB PO SCH ×2 (09:00→14:30)
[2022-03-10] MEDS ORDERED: Multivit, Therapeutic 1 TAB PO SCH (09:00)
[2022-03-10] MEDS: Acetaminophen 325 MG TAB PO PRN (10:09)
[2022-03-10] MEDS: Lorazepam 0.5 MG TAB PO PRN ×2 (10:24→20:50)
[2022-03-10 10:54] LABS: Magnesium 1.9 mg/dL (1.6-2.6)
[2022-03-10 10:56] LABS: Troponin I 0.025 ng/mL (< 0.028)
[2022-03-10 12:35] LABS: SARS-CoV-2 PCR by NAA Not Detected (NotDetected)
[2022-03-10 13:20] LABS: Troponin I 0.023 ng/mL (< 0.028)
[2022-03-10] MEDS ORDERED: Polyethylene Glycol 3350 17 GM Packet PO PRN (14:02)
[2022-03-10] MEDS ORDERED: hydrALAZINE 20 MG/ML VIAL SLOW IVP PRN (14:10)
[2022-03-10] MEDS ORDERED: traZODone HCl 50 MG TAB PO SCH (21:00)
[2022-03-11] MEDS: Acetaminophen 325 MG TAB PO PRN ×2 (03:15→10:41)
[2022-03-11 04:56] LABS: #Eosinphils 0.1 thou/uL (0.0-0.7); #Lymphocytes 1.3 thou/uL (1.20-3.40); #Monocytes 0.5 thou/uL (0.11-0.59); #Neutrophils 3.8 thou/uL (1.40-6.50); %Basophils 0.6 % (0.0-1.0); %Monocytes 7.9 % (0.0-10.0); %Neutrophils 66.5 % (42.0-75.0); Hemoglobin 13.7 g/dL (14.0-18.0); Mean Corpuscular HGB CONC 34.9 g/dL (32.0-36.0); Mean Corpuscular Hemoglobin 33.5 pg (27.0-31.0); Mean Platelet Volume 7.8 fL (7.4-10.4); Platelet Count 141 thou/uL (130-400); RBC Distribution Width 14.1 % (11.5-14.5); Red Blood Cell (RBC) Count 4.08 mill/uL (4.70-6.10); White Blood Cell (WBC) Count 5.8 thou/uL (4.8-10.8)
[2022-03-11 05:22] LABS: ALT (SGPT) 17 U/L (8-55); AST (SGOT) 17 U/L (5-34); Alkaline Phosphatase 83 U/L (40-110); Anion Gap 11 mmol/L (10-20); BUN (Urea Nitrogen) 11 mg/dL (8.4-25.7); Bilirubin, Total 2.7 mg/dL (0.2-1.2); Calc. Creatinine Clearance 134 mL/min (70-130); Calcium 8.9 mg/dL (7.8-10.44); Carbon Dioxide 26 mmol/L (23-31); Chloride 102 mmol/L (98-107); Globulin 2.6 g/dL (2.4-3.5); Glucose 120 mg/dL (80-115); Potassium 3.4 mmol/L (3.5-5.1); Protein, Total 6.6 g/dL (5.8-8.1); Sodium 136 mmol/L (136-145)
[2022-03-11] MEDS ORDERED: Potassium Chloride 20 MEQ TAB PO SCH ×2 (08:30→17:00)
[2022-03-11] MEDS ORDERED: Communication Order-Pharmacy FS SCH (08:56)
[2022-03-11] MEDS: Fish Oil 1,000 MG CAP PO SCH (09:15)
[2022-03-11] MEDS: Carvedilol 25 MG TAB PO SCH ×2 (09:15→16:56)
[2022-03-11] MEDS: Aspirin 81 mg Enteric Coated Tablet PO SCH (09:15)
[2022-03-11] MEDS: Losartan 25 MG TAB PO SCH (09:15)
[2022-03-11] MEDS: Folic Acid 1 MG TAB PO SCH (09:16)
[2022-03-11] MEDS: Allopurinol 300 MG TAB PO SCH (09:16)
[2022-03-11] MEDS: Famotidine 20 MG TAB PO SCH ×2 (09:16→20:11)
[2022-03-11] MEDS: Lorazepam 0.5 MG TAB PO PRN (12:06)
[2022-03-11] MEDS ORDERED: Enoxaparin Sodium 120 MG/0.8 ML SYRINGE SC SCH ×2 (12:35→21:00)
[2022-03-11] MEDS ORDERED: Lorazepam 0.5 MG TAB PO PRN (18:44)
[2022-03-11] MEDS: Apixaban 5 MG TAB PO SCH (20:12)
[2022-03-12 04:34] LABS: #Basophils 0.1 thou/uL (0.0-0.2); #Eosinphils 0.1 thou/uL (0.0-0.7); #Lymphocytes 1.8 thou/uL (1.20-3.40); #Monocytes 0.6 thou/uL (0.11-0.59); %Basophils 0.9 % (0.0-1.0); %Eosinophils 2.2 % (0.0-10.0); %Lymphocytes 27.9 % (21.0-51.0); %Monocytes 8.3 % (0.0-10.0); %Neutrophils 60.7 % (42.0-75.0); Hemoglobin 14.6 g/dL (14.0-18.0); Mean Corpuscular HGB CONC 34.2 g/dL (32.0-36.0); Mean Corpuscular Hemoglobin 32.9 pg (27.0-31.0); Mean Corpuscular Volume 96.1 fL (78.0-98.0); Mean Platelet Volume 7.7 fL (7.4-10.4); Platelet Count 182 thou/uL (130-400); RBC Distribution Width 13.9 % (11.5-14.5); Red Blood Cell (RBC) Count 4.44 mill/uL (4.70-6.10); White Blood Cell (WBC) Count 6.6 thou/uL (4.8-10.8)
[2022-03-12 05:04] LABS: ALT (SGPT) 18 U/L (8-55); AST (SGOT) 17 U/L (5-34); Albumin 4.3 g/dL (3.4-4.8); Alkaline Phosphatase 92 U/L (40-110); Anion Gap 14 mmol/L (10-20); BUN (Urea Nitrogen) 9 mg/dL (8.4-25.7); Bilirubin, Total 2.9 mg/dL (0.2-1.2); Calc. Creatinine Clearance 114 mL/min (70-130); Calcium 9.3 mg/dL (7.8-10.44); Carbon Dioxide 26 mmol/L (23-31); Chloride 102 mmol/L (98-107); Globulin 2.8 g/dL (2.4-3.5); Glucose 115 mg/dL (80-115); Potassium 3.8 mmol/L (3.5-5.1); Protein, Total 7.1 g/dL (5.8-8.1); Sodium 138 mmol/L (136-145)
[2022-03-12] MEDS: Famotidine 20 MG TAB PO SCH (09:02)
[2022-03-12] MEDS: Losartan 25 MG TAB PO SCH (09:02)
[2022-03-12] MEDS: Aspirin 81 mg Enteric Coated Tablet PO SCH (09:02)
[2022-03-12] MEDS: Apixaban 5 MG TAB PO SCH (09:03)
[2022-03-12] MEDS: Folic Acid 1 MG TAB PO SCH (09:03)
[2022-03-12] MEDS: Fish Oil 1,000 MG CAP PO SCH (09:03)
[2022-03-12] MEDS: Carvedilol 25 MG TAB PO SCH (09:03)
[2022-03-12] MEDS: Allopurinol 300 MG TAB PO SCH (09:03)
[2022-03-12 15:54] VITALS: BP 167/79; TEMP 98.7
[2022-03-17] MEDS ORDERED: Apixaban 5 MG TAB PO SCH (09:00)
[2022-03-18] MEDS ORDERED: Apixaban 5 MG TAB PO SCH (09:00)
== END 2022-03-12 17:30 | disposition home or self-care (01) | DRG 175 ==
LOC: ERS 19:21 → 2NO 21:43
PROVIDERS: ADMIT Internal Medicine; ATTEND Internal Medicine
DX: I26.09 Other pulmonary embolism with acute cor pulmonale (principal); I42.8 Other cardiomyopathies; I82.431 Acute embolism and thrombosis of right popliteal vein; I82.441 Acute embolism and thrombosis of right tibial vein; Z20.822 Contact with and (suspected) exposure to COVID-19; I10 Essential (primary) hypertension; M06.9 Rheumatoid arthritis, unspecified; M10.9 Gout, unspecified; I08.3 Combined rheumatic disorders of mitral, aortic and tricuspid valves; E87.6 Hypokalemia; E83.42 Hypomagnesemia; F41.9 Anxiety disorder, unspecified; E66.9 Obesity, unspecified; S92.401A Displaced unspecified fracture of right great toe, initial encounter for closed fracture; G47.33 Obstructive sleep apnea (adult) (pediatric); J98.6 Disorders of diaphragm; Z86.711 Personal history of pulmonary embolism; Z86.718 Personal history of other venous thrombosis and embolism; Z68.35 Body mass index [BMI] 35.0-35.9, adult; Z88.8 Allergy status to other drugs, medicaments and biological substances; Z79.899 Other long term (current) drug therapy; Z79.82 Long term (current) use of aspirin; Z90.49 Acquired absence of other specified parts of digestive tract; Z82.49 Family history of ischemic heart disease and other diseases of the circulatory system; Z99.89 Dependence on other enabling machines and devices; R06.00 Dyspnea, unspecified
CPT/HCPCS: 36415; 71045; 71275; 80048; 80053; 82553; 83735; 83880; 84484; 85025; 85379; 93005; 93306; 93970; 94760; 96372; J1650; U0003; U0005

== ENCOUNTER 2023-06-03 09:44 | Outpatient (CLI) | payer BC | END 2023-06-03 09:45 | disposition home or self-care (01) | LOC: BICMAMMO 09:44 | PROVIDERS: ATTEND Family Medicine | DX: N64.4 Mastodynia (principal) | CPT/HCPCS: 77066; G0279 ==

== ENCOUNTER 2023-11-26 08:00 | Outpatient (CLI) | payer BC, MEDICARE | END 2023-11-26 08:01 | disposition home or self-care (01) | LOC: SCSMRI 08:00 | PROVIDERS: ATTEND Orthopaedic Surgery | DX: S46.011A Strain of muscle(s) and tendon(s) of the rotator cuff of right shoulder, initial encounter (principal); M75.111 Incomplete rotator cuff tear or rupture of right shoulder, not specified as traumatic; M19.011 Primary osteoarthritis, right shoulder; Z98.890 Other specified postprocedural states ==

== ENCOUNTER 2024-09-15 10:04 | Outpatient (CLI) | payer MEDICARE | END 2024-09-15 10:05 | disposition home or self-care (01) | LOC: SCSMRI 10:04 | PROVIDERS: ATTEND Orthopaedic Surgery | DX: S46.011D Strain of muscle(s) and tendon(s) of the rotator cuff of right shoulder, subsequent encounter (principal) ==